=== PATIENT | male | born 1980 | race American Indian/Alaskan Native ===

== ENCOUNTER 2018-10-13 14:30 | Emergency (ER) | payer MEDICAID ==
[2018-10-13] MEDS ORDERED: Ibuprofen 600 MG Tab PO STA (14:44)
--- NOTE | 2018-10-13 14:47 | EDM.PDOC ---
ED HPI GENERAL MEDICAL PROBLEM - General Chief Complaint: Upper Extremity Injury/Pain Stated Complaint: DISLOCATION Time Seen by Provider: 10/13/18 14:30 Source of Information: Reports: Patient, Family History Limitations: Reports: No Limitations - History of Present Illness INITIAL COMMENTS - FREE TEXT/NARRATIVE: 37 y.o.w.m came to the ed after he felt pain at his right upper arm while wrestling. Pt has pain at his right humerus, radiating into his right shoulder and elbow. Pt rojo not remember the mech of injury. No N/V/D or any other acute medical issues. BP 157/90 RR 18 Pulse ox 100% on RA Pulse 73 Temp 36.7 Onset Date: 10/13/18 Onset Time: 13:00 Duration: Day(s):, Intermittent Location: Reports: Upper Extremity, Right Quality: Reports: Burning, Dull Severity: Moderate Improves with: Reports: Rest Worsens with: Reports: Movement Context: Reports: Trauma (through wrestling) Associated Symptoms: Reports: No Other Symptoms right elbow Pain Score (Numeric/FACES): 7 - Related Data Allergies Allergy/AdvReac Type Severity Reaction Status Date / Time No Known Allergies Allergy Verified 10/13/18 14:33 Home Meds: Home Meds NK [No Known Home Meds] 10/13/18 [History] Review of Systems - Review of Systems Review Of Systems: See Below Constitutional: Reports: No Symptoms Eyes: Reports: No Symptoms Ears: Reports: No Symptoms Nose: Reports: No Symptoms Mouth/Throat: Reports: No Symptoms Respiratory: Reports: No Symptoms Cardiovascular: Reports: No Symptoms GI/Abdominal: Reports: No Symptoms Genitourinary: Reports: No Symptoms Musculoskeletal: Reports: Arm Pain (right upper arm) Skin: Reports: No Symptoms Neurological: Reports: No Symptoms Psychiatric: Reports: No Symptoms ED EXAM, GENERAL - Physical Exam Exam: See Below Exam Limited By: No Limitations General Appearance: Alert, WD/WN, Moderate Distress Eye Exam: Bilateral Eye: Normal Inspection Ears: Normal External Exam Ear Exam: Bilateral Ear: Auricle Normal Nose: Normal Inspection, Normal Mucosa, No Blood Throat/Mouth: Normal Inspection, Normal Lips, Normal Voice, No Airway Compromise Head: Atraumatic, Normocephalic Neck: Normal Inspection, Supple, Non-Tender, Full Range of Motion Respiratory/Chest: No Respiratory Distress, Lungs Clear, Normal Breath Sounds, No Accessory Muscle Use, Chest Non-Tender Cardiovascular: Normal Peripheral Pulses, Regular Rate, Rhythm, No Edema, No Gallop, No JVD, No Murmur, No Rub Peripheral Pulses: 1+: Radial (R) GI/Abdominal: Normal Bowel Sounds, Soft, Non-Tender, No Organomegaly, No Distention, No Abnormal Bruit, No Mass, Pelvis Stable (Male) Exam: Deferred Rectal (Males) Exam: Deferred Back Exam: Normal Inspection, Full Range of Motion Extremities: Normal Inspection, Limited Range of Motion (right arem due to pain) Neurological: Alert, Oriented, CN II-XII Intact, Normal Cognition, Normal Gait, No Motor/Sensory Deficits Psychiatric: Normal Affect, Normal Mood Skin Exam: Warm, Dry, Intact, Normal Color Lymphatic: No Adenopathy Course - Vital Signs Text/Narrative:: 37 y.o.w.m came to the ed after he felt pain at his right upper arm while wrestling. Pt has pain at his right humerus, radiating into his right shoulder and elbow. Pt rojo not remember the mech of injury. No N/V/D or any other acute medical issues. BP 157/90 RR 18 Pulse ox 100% on RA Pulse 73 Temp 36.7 Pe: WNWD W M with right arm pain and Limited ROM due to pain Imaging: Right shoulder, humerus and elbow: NAD Impression: R upper arm pain after wrestling DDX: Compartment syndrome Tx: Ice, Motrin Reeam: Improved Plan: D/C with instructions Last Recorded V/S: Last Vital Signs Temp 36.6 C 10/13/18 15:10 Pulse 59 L 10/13/18 15:10 Resp 17 10/13/18 15:10 BP 149/94 H 10/13/18 15:10 Pulse Ox 100 10/13/18 15:10 - Orders/Labs/Meds Orders: Active Orders 24 hr Category Date Time Status Humerus Rt [CR] Stat Exams 10/13/18 14:42 Taken Meds: Medications Discontinued Medications Generic Name Dose Route Start Last Admin Trade Name Freq PRN Reason Stop Dose Admin Ibuprofen 600 mg 10/13/18 14:44 10/13/18 14:48 Motrin PO 10/13/18 14:45 600 mg ONETIME STA Administration Departure - Departure Time of Disposition: 15:03 Disposition: Home, Self-Care 01 Condition: Good Clinical Impression: Muscle pain - Discharge Information Instructions: Muscle Pain, Adult Referrals: PCP,None [Primary Care Provider] - Forms: ED Department Discharge Additional Instructions: Please f/u with your PMD, apply ICE to the affected area, please take Motrin for pain, please come back if your symptoms get worse acutely - My Orders Last 24 Hours: My Active Orders 10/13/18 14:42 Humerus Rt [CR] Stat - Assessment/Plan Last 24 Hours: My Active Orders 10/13/18 14:42 Humerus Rt [CR] Stat
--- NOTE | 2018-10-15 10:57 | CR ---
INDICATION: Arm wrestling injury. RIGHT HUMERUS: Three images of the right humerus in frontal and lateral projections were obtained, 10/13/18 - no comparisons. A fracture, dislocation, or other significant bone or joint abnormality was not identified. A tiny sclerotic density in the humeral head is compatible with a benign bone island. IMPRESSION: No acute fracture or dislocation. MTDD
== END 2018-10-13 15:13 | disposition home or self-care (01) ==
LOC: FB.ED 14:30
DX: M79.621 Pain in right upper arm (principal); M25.511 Pain in right shoulder; Y93.72 Activity, wrestling
CPT/HCPCS: 73060-RT; 99283-25; A9270-GY

== ENCOUNTER 2019-07-10 21:27 | Emergency (ER) | payer MEDICAID, OTHER ==
[2019-07-10] MEDS: Sodium Chloride 0.9% 10 ML Syringe FLUSH PRN ×2 (21:30→22:15)
[2019-07-10] MEDS ORDERED: LORazepam 2 MG/ML SDV IVPUSH ONE ×2 (21:32→21:47)
[2019-07-10] MEDS ORDERED: Morphine 2 MG/ML Syringe IVPUSH ONE (21:49)
--- NOTE | 2019-07-10 23:00 | EDM.PDOC ---
ED HPI GENERAL MEDICAL PROBLEM - General Chief Complaint: Headache Stated Complaint: HEAD PAIN; SOB Time Seen by Provider: 07/10/19 21:30 Source of Information: Reports: Patient History Limitations: Reports: No Limitations - History of Present Illness INITIAL COMMENTS - FREE TEXT/NARRATIVE: Patient presented to the ED because of sever headache,chest pain and anxiety attack. His head is throbing,10/10 denies any N/V. He had headaches before but nothing like this. He also c/o perioral numbness and tingling as well as dyspnea. Headache Pain Score (Numeric/FACES): 8 - Related Data Allergies Allergy/AdvReac Type Severity Reaction Status Date / Time No Known Allergies Allergy Verified 07/10/19 22:55 Home Meds: Home Meds amLODIPine Besylate [Norvasc] 10 mg PO DAILY #30 tablet 07/10/19 [Rx] Past Medical History - Past Health History Medical/Surgical History: Denies Medical/Surgical History Social & Family History - Family History Family Medical History: Noncontributory - Tobacco Use Smoking Status *Q: Current Every Day Smoker Years of Tobacco use: 12 Packs/Tins Daily: 0.5 Used Tobacco, but Quit: No Second Hand Smoke Exposure: No - Caffeine Use Caffeine Use: Reports: Coffee - Recreational Drug Use Recreational Drug Use: No ED ROS GENERAL - Review of Systems Review Of Systems: See Below Constitutional: Reports: No Symptoms HEENT: Reports: No Symptoms Respiratory: Reports: Shortness of Breath Cardiovascular: Reports: Chest Pain Endocrine: Reports: No Symptoms GI/Abdominal: Reports: No Symptoms : Reports: No Symptoms Musculoskeletal: Reports: No Symptoms Skin: Reports: No Symptoms Neurological: Reports: Headache Psychiatric: Reports: No Symptoms Hematologic/Lymphatic: Reports: No Symptoms Immunologic: Reports: No Symptoms - Physical Exam Exam: See Below Exam Limited By: No Limitations General Appearance: Alert, Anxious Eye Exam: Bilateral Eye: PERRL Ears: Normal External Exam, Normal Canal, Hearing Grossly Normal, Normal TMs Nose: Normal Inspection, Normal Mucosa, No Blood Throat/Mouth: Normal Inspection, Normal Lips, Normal Teeth, Normal Gums, Normal Oropharynx, Normal Voice Head Exam: Atraumatic, Normocephalic Neck: Normal Inspection, Supple, Non-Tender, Full Range of Motion Respiratory/Chest: No Respiratory Distress, Lungs Clear, Normal Breath Sounds, No Accessory Muscle Use, Chest Non-Tender Cardiovascular: Normal Peripheral Pulses, Regular Rate, Rhythm, No Edema, No Gallop, No JVD, No Murmur, No Rub GI/Abdominal: Normal Bowel Sounds, Soft, Non-Tender, No Organomegaly, No Distention, No Abnormal Bruit Neuro Exam (Abbreviated): Alert, Oriented, CN II-XII Intact, Normal Cognition, Normal Gait, Normal Reflexes, No Motor/Sensory Deficits Back Exam: Normal Inspection, Full Range of Motion Extremities: Normal Inspection, Normal Range of Motion, Non-Tender Psychiatric: Anxious, Tearful Skin Exam: Warm, Dry, Intact Course - Vital Signs Text/Narrative:: labs/EKG/Head CT was discussed with the patient and verbalized full understanding EKG-NSR trop-neg Head Ct -neg ativan 1 mg IV x1 morhine 4 mg IV x1 all his symptoms resolved after the above treatment Last Recorded V/S: Last Vital Signs Temp 36.5 C 07/10/19 21:27 Pulse 84 07/10/19 21:27 Resp 32 H 07/10/19 21:27 BP 195/105 H 07/10/19 21:27 Pulse Ox 100 07/10/19 21:27 - Orders/Labs/Meds Orders: Active Orders 24 hr Category Date Time Status EKG Documentation Completion [RC] ASDIRECTED Care 07/10/19 21:33 Active Chest 1V Frontal [CR] Stat Exams 07/10/19 21:33 Taken Head wo Cont [CT] Stat Exams 07/10/19 21:31 Taken Peripheral IV Insertion Adult [OM.PC] Routine Oth 07/10/19 22:52 Ordered EKG 12 Lead [EK] Routine Ther 07/10/19 21:33 Ordered Labs: Laboratory Tests 07/10/19 07/10/19 07/10/19 Range/Units 21:40 21:40 21:40 WBC 10.6 (4.5-12.0) X10-3/uL RBC 5.70 (4.30-5.75) x10(6)uL Hgb 16.6 (13.5-17.8) g/dL Hct 48.9 (30.0-51.3) % MCV 85.9 (80-96) fL MCH 29.1 (27.7-33.6) pg MCHC 33.9 (32.2-35.4) g/dL RDW 13.9 (11.5-15.5) % Plt Count 211 (125-369) X10(3)uL MPV 9.9 (7.4-10.4) fL Add Manual Diff Yes Neutrophils % (Manual) 77 (46-82) % Lymphocytes % (Manual) 10 L (13-37) % Monocytes % (Manual) 9 (4-12) % Eosinophils % (Manual) 4 (0-5) % Sodium 141 (135-145) mmol/L Potassium 3.6 (3.5-5.3) mmol/L Chloride 104 (100-110) mmol/L Carbon Dioxide 21 (21-32) mmol/L BUN 7 (7-18) mg/dL Creatinine 0.9 (0.70-1.30) mg/dL Est Cr Clr Drug Dosing TNP Estimated GFR (MDRD) > 60 (>60) BUN/Creatinine Ratio 7.8 L (9-20) Glucose 107 (80-116) mg/dL Calcium 9.2 (8.6-10.2) mg/dL Troponin I < 0.017 L (<0.017-0.056) ng/mL Meds: Medications Discontinued Medications Generic Name Dose Route Start Last Admin Trade Name Freq PRN Reason Stop Dose Admin Lorazepam 20 mg 07/10/19 21:32 07/10/19 21:49 Ativan IVPUSH 07/10/19 21:33 Not Given ONETIME ONE Lorazepam 1 mg 07/10/19 21:47 07/10/19 21:53 Ativan IVPUSH 07/10/19 21:48 1 mg ONETIME ONE Administration Morphine Sulfate 4 mg 07/10/19 21:49 07/10/19 21:54 Morphine IVPUSH 07/10/19 21:50 4 mg ONETIME ONE Administration Sodium Chloride 10 ml 07/10/19 22:52 07/10/19 22:15 Saline Flush FLUSH 10 ml ASDIRECTED PRN Administration Keep Vein Open Departure - Departure Time of Disposition: 10:55 Disposition: Home, Self-Care 01 Condition: Good Clinical Impression: Hypertensive crisis, Anxiety, Chest pain, atypical - Discharge Information Prescriptions: amLODIPine Besylate [Norvasc] 10 mg PO DAILY #30 tablet Instructions: Generalized Anxiety Disorder, Adult, Nonspecific Chest Pain, General Headache Without Cause, [id number] Referrals: PCP,None [Primary Care Provider] - Forms: ED Department Discharge Additional Instructions: low salt low fat diet exercise norvasc 10 mg once daily record your BP x7 days then follow up with your doctor in a week take ibuprofen 800 mg with tylenol 1000 mg every 8 hours as needed for pain Sepsis Event Note - Evaluation Sepsis Screening Result: No Definite Risk - Focused Exam Vital Signs: Vital Signs Temp Pulse Resp BP Pulse Ox 07/10/19 21:27 36.5 C 84 32 H 195/105 H 100 Date Exam was Performed: 07/11/19 Time Exam was Performed: 05:08 - My Orders Last 24 Hours: My Active Orders 07/10/19 21:31 Head wo Cont [CT] Stat 07/10/19 21:33 EKG Documentation Completion [RC] ASDIRECTED Chest 1V Frontal [CR] Stat EKG 12 Lead [EK] Routine 07/10/19 22:52 Peripheral IV Insertion Adult [OM.PC] Routine - Assessment/Plan Last 24 Hours: My Active Orders 07/10/19 21:31 Head wo Cont [CT] Stat 07/10/19 21:33 EKG Documentation Completion [RC] ASDIRECTED Chest 1V Frontal [CR] Stat EKG 12 Lead [EK] Routine 07/10/19 22:52 Peripheral IV Insertion Adult [OM.PC] Routine
--- NOTE | 2019-07-11 18:39 | CR ---
INDICATION: Cough, chest pain. CHEST, ONE VIEW: An AP upright view of the chest 07/10/19 was compared with 02/10 and again reveals the heart to be normal in size and shape. Mediastinum and bony thorax were unremarkable, except to note suggestion of a minimal dextroconcave scoliosis of the lower thoracic spine. A definite active infiltrate or effusion was not identified. Overlying EKG leads are noted. IMPRESSION: No acute process. MTDD
== END 2019-07-10 23:12 | disposition home or self-care (01) ==
LOC: FB.ED 21:27
DX: I16.9 Hypertensive crisis, unspecified (principal); R07.89 Other chest pain; F17.210 Nicotine dependence, cigarettes, uncomplicated
CPT/HCPCS: 36415; 70450; 71045; 80048; 84484; 85025; 93005; 96374; 96375; 99285; J2060; J2270

== ENCOUNTER 2021-05-15 01:04 | Emergency (ER) | payer SELFPAY ==
[2021-05-15] MEDS: Labetalol 20 MG/4 ML Syringe IVPUSH ONE (01:45)
--- NOTE | 2021-05-15 01:46 | EDM.PDOC ---
ED HPI GENERAL MEDICAL PROBLEM - General Stated Complaint: INTOXICATED Time Seen by Provider: 05/15/21 01:25 Source of Information: Reports: Patient - History of Present Illness INITIAL COMMENTS - FREE TEXT/NARRATIVE: 40-year-old gentleman called EMS and asked to be brought to the emergency department because he passed out. States that he has had a problem with alcoholism in the past but has been absent from alcohol for approximately 7 years leading up to the last several weeks. Over the last several weeks he has been drinking "a lot of alcohol." He states that his last drink of alcohol was earlier today. He called EMS because he states he never passed out in the past. He states that he has been smoking marijuana but has not consumed any other drugs. He has not had alcohol withdrawal in the past. Declined transfer to alcohol treatment/detoxification. He is simply concerned about his blood pressure at this time. He states that he was walking around the corner from the bathroom where he was staying he felt very dizzy suddenly and went to the floor and then blacked out. He is not aware of any trauma. He has no pain. Denies all other review of systems including fever, chills, flulike symptoms, chest pain, shortness of breath, change in bowel or bladder habits. - Related Data Allergies Allergy/AdvReac Type Severity Reaction Status Date / Time No Known Allergies Allergy Verified 05/15/21 03:15 Home Meds: Home Meds NK [No Known Home Meds] 05/15/21 [History] Past Medical History - Past Health History Medical/Surgical History: Denies Medical/Surgical History Social & Family History - Family History Family Medical History: No Pertinent Family History - Caffeine Use Caffeine Use: Reports: Coffee ED ROS GENERAL - Review of Systems Review Of Systems: See Below Constitutional: Reports: No Symptoms HEENT: Reports: No Symptoms Respiratory: Reports: No Symptoms Cardiovascular: Reports: Syncope Endocrine: Reports: No Symptoms GI/Abdominal: Reports: No Symptoms : Reports: No Symptoms Musculoskeletal: Reports: No Symptoms Skin: Reports: No Symptoms Neurological: Reports: No Symptoms Psychiatric: Reports: No Symptoms Hematologic/Lymphatic: Reports: No Symptoms Immunologic: Reports: No Symptoms ED EXAM, GENERAL - Physical Exam Exam: See Below Exam Limited By: No Limitations General Appearance: Alert, Anxious Eye Exam: Bilateral Eye: EOMI Head: Atraumatic, Normocephalic Respiratory/Chest: No Respiratory Distress, Lungs Clear Cardiovascular: Regular Rate, Rhythm, No Murmur Peripheral Pulses: 2+: Radial (L), Radial (R), Dorsalis Pedis (L), Dorsalis Pedis (R) GI/Abdominal: Normal Bowel Sounds, Soft, Non-Tender Back Exam: Normal Inspection Extremities: Normal Inspection Neurological: Alert, Oriented, Normal Cognition Psychiatric: Anxious Skin Exam: Warm, Dry Course - Vital Signs Text/Narrative:: Review of lab work shows hypernatremia and blood alcohol content 0.22. Patient was given 1 L banana bag, 10 mg labetalol IV, 0.1 mg clonidine. His blood pressure significantly improved and patient requested to be discharged to home. Last Recorded V/S: Last Vital Signs Temp 36.2 C 05/15/21 01:05 Pulse 78 05/15/21 01:05 Resp 16 05/15/21 01:05 BP 195/114 H 05/15/21 02:58 Pulse Ox 98 05/15/21 01:05 - Orders/Labs/Meds Orders: Active Orders 24 hr Category Date Time Status Notify Provider [RC] PRN Care 05/15/21 01:34 Active DRUG SCREEN, URINE [URCHEM] Stat Lab 05/15/21 01:30 Ordered MVI, Adult with Vitamin K [Infuvite Adult] 10 ml Med 05/15/21 01:45 Active Thiamine [Vitamin B-1] 100 mg Folic Acid 1 mg Magnesium Sulfate [Magnesium Sulfate 50%] 3 gm Sodium Chloride 0.9% [Normal Saline] 1,000 ml IV ASDIRECTED Medication Orders Multivitamins/Minerals 10 ml/Thiamine HCl 100 mg/ Folic Acid 1 mg/ Magnesium Sulfate 3 gm/ Sodium Chloride 1,017.2 mls @ 999 mls/hr IV ASDIRECTED ROSLYN Last Admin: 05/15/21 01:55 Dose: 999 mls/hr Documented by: YVETTE Labs: Laboratory Tests 05/15/21 05/15/21 05/15/21 Range/Units 01:41 01:41 01:41 WBC 9.2 (3.2-10.1) x10-3/uL RBC 5.52 (3.90-5.90) x10(6)uL Hgb 15.4 (12.9-17.7) g/dL Hct 47.1 (38.3-50.1) % MCV 85.3 (80.8-98.7) fL MCH 28.0 (27.0-33.3) pg MCHC 32.8 (28.7-35.3) g/dL RDW 15.6 H (12.4-15.0) % Plt Count 230 (117-477) x10(3)uL MPV 9.1 (6.7-11.0) fL Neut % (Auto) 73.6 H (40.3-71.8) % Lymph % (Auto) 19.0 (15.8-45.3) % [place] % (Auto) 5.4 L (5.5-15.2) % Eos % (Auto) 1.2 (0.1-6.8) % Baso % (Auto) 0.8 (0.3-3.8) % Neut # (Auto) 6.7 (1.7-6.9) x10-3/uL Lymph # (Auto) 1.7 (0.5-4.5) x10-3/uL [place] # (Auto) 0.5 (0.0-1.2) x10-3/uL Eos # (Auto) 0.1 (0.0-0.6) x10-3/uL Baso # (Auto) 0.1 (0.0-0.3) x10-3/uL Sodium 148 H (135-145) mmol/L Potassium 3.5 (3.5-5.3) mmol/L Chloride 110 D (100-110) mmol/L Carbon Dioxide 23 (21-32) mmol/L BUN 14 (7-18) mg/dL Creatinine 1.1 (0.70-1.30) mg/dL Est Cr Clr Drug Dosing TNP Estimated GFR (MDRD) > 60 (>60) BUN/Creatinine Ratio 12.7 (9-20) Glucose 160 H (80-116) mg/dL Calcium 8.0 L (8.6-10.2) mg/dL Magnesium 1.8 (1.8-2.5) mg/dL Total Bilirubin 0.5 (0.1-1.3) mg/dL AST 58 H (5-25) IU/L ALT 45 H (12-36) U/L Alkaline Phosphatase 107 (56-112) IU/L Total Protein 7.4 (6.0-8.0) g/dL Albumin 3.7 (3.5-5.2) g/dL Globulin 3.7 g/dL Albumin/Globulin Ratio 1.0 Ethyl Alcohol 0.22 H* (<0.03) % SARS-CoV-2 RNA (BYRON) (NEGATIVE) 05/15/21 Range/Units 02:05 WBC (3.2-10.1) x10-3/uL RBC (3.90-5.90) x10(6)uL Hgb (12.9-17.7) g/dL Hct (38.3-50.1) % MCV (80.8-98.7) fL MCH (27.0-33.3) pg MCHC (28.7-35.3) g/dL RDW (12.4-15.0) % Plt Count (117-477) x10(3)uL MPV (6.7-11.0) fL Neut % (Auto) (40.3-71.8) % Lymph % (Auto) (15.8-45.3) % [place] % (Auto) (5.5-15.2) % Eos % (Auto) (0.1-6.8) % Baso % (Auto) (0.3-3.8) % Neut # (Auto) (1.7-6.9) x10-3/uL Lymph # (Auto) (0.5-4.5) x10-3/uL [place] # (Auto) (0.0-1.2) x10-3/uL Eos # (Auto) (0.0-0.6) x10-3/uL Baso # (Auto) (0.0-0.3) x10-3/uL Sodium (135-145) mmol/L Potassium (3.5-5.3) mmol/L Chloride (100-110) mmol/L Carbon Dioxide (21-32) mmol/L BUN (7-18) mg/dL Creatinine (0.70-1.30) mg/dL Est Cr Clr Drug Dosing Estimated GFR (MDRD) (>60) BUN/Creatinine Ratio (9-20) Glucose (80-116) mg/dL Calcium (8.6-10.2) mg/dL Magnesium (1.8-2.5) mg/dL Total Bilirubin (0.1-1.3) mg/dL AST (5-25) IU/L ALT (12-36) U/L Alkaline Phosphatase (56-112) IU/L Total Protein (6.0-8.0) g/dL Albumin (3.5-5.2) g/dL Globulin g/dL Albumin/Globulin Ratio Ethyl Alcohol (<0.03) % SARS-CoV-2 RNA (BY[facility]) Negative (NEGATIVE) Meds: Medications Generic Name Dose Route Start Last Admin Trade Name Freq PRN Reason Stop Dose Admin Multivitamins/Minerals 10 ml/ 1,017.2 mls @ 999 mls/hr 05/15/21 01:45 05/15/21 01:55 Thiamine HCl 100 mg/ Folic IV 999 mls/hr Acid 1 mg/ Magnesium Sulfate 3 ASDIRECTED ROSLYN Administration gm/ Sodium Chloride Discontinued Medications Generic Name Dose Route Start Last Admin Trade Name Freq PRN Reason Stop Dose Admin Clonidine HCl 0.1 mg 05/15/21 02:53 05/15/21 02:58 Clonidine 0.1 Mg Tab PO 05/15/21 02:54 0.1 mg ONETIME ONE Administration Labetalol HCl 10 mg 05/15/21 01:29 05/15/21 01:45 Labetalol 20 Mg/4 Ml Syringe IVPUSH 05/15/21 01:30 10 mg ONETIME ONE Administration Protocol Departure - Departure Time of Disposition: 04:44 Disposition: Home, Self-Care 01 Condition: Poor Clinical Impression: Alcohol withdrawal syndrome, Alcohol abuse, Hypertension - Discharge Information *PRESCRIPTION DRUG MONITORING PROGRAM REVIEWED*: Not Applicable *COPY OF PRESCRIPTION DRUG MONITORING REPORT IN PATIENT CAYLA: Not Applicable Instructions: Preventing Hypertension, Syncope, [id number], Hypertension, Adult, [id number], Alcohol Use Disorder, Alcohol Intoxication, [id number], Supporting Someone With an Addiction, Hypertension, Adult Referrals: Tai Sánchez MD [Primary Care Provider] - Forms: ED Department Discharge Additional Instructions: You have been able to quit drinking alcohol in the past and I encourage you to do so again. Your labs indicated that your sodium level is a little high likely secondary to increased intake of alcohol. Please drink water. Your blood pressure was significantly high and is a danger to your future health. Please follow-up with your primary care physician. Sepsis Event Note (ED) - Focused Exam Vital Signs: Vital Signs Temp Pulse Resp BP Pulse Ox 05/15/21 02:58 195/114 H 05/15/21 01:05 36.2 C 78 16 98 - My Orders Last 24 Hours: My Active Orders 05/15/21 01:30 DRUG SCREEN, URINE [URCHEM] Stat 05/15/21 01:34 Notify Provider [RC] PRN 05/15/21 01:45 MVI, Adult with Vitamin K [Infuvite Adult] 10 ml Thiamine [Vitamin B-1] 100 mg Folic Acid 1 mg Magnesium Sulfate [Magnesium Sulfate 50%] 3 gm Sodium Chloride 0.9% [Normal Saline] 1,000 ml IV ASDIRECTED - Assessment/Plan Last 24 Hours: My Active Orders 05/15/21 01:30 DRUG SCREEN, URINE [URCHEM] Stat 05/15/21 01:34 Notify Provider [RC] PRN 05/15/21 01:45 MVI, Adult with Vitamin K [Infuvite Adult] 10 ml Thiamine [Vitamin B-1] 100 mg Folic Acid 1 mg Magnesium Sulfate [Magnesium Sulfate 50%] 3 gm Sodium Chloride 0.9% [Normal Saline] 1,000 ml IV ASDIRECTED
[2021-05-15] MEDS: MVI, Adult with Vitamin K 10 ML, Thiamine 100 MG, Folic Acid 1 MG, Magnesium Sulfate 3 ... IV SCH ×5 (01:55)
[2021-05-15] MEDS: cloNIDine 0.1 MG Tab PO ONE (02:58)
== END 2021-05-15 06:35 | disposition home or self-care (01) ==
LOC: FB.ED 01:04
DX: F10.230 Alcohol dependence with withdrawal, uncomplicated (principal); I10 Essential (primary) hypertension; Y90.8 Blood alcohol level of 240 mg/100 ml or more; Z20.822 Contact with and (suspected) exposure to COVID-19
CPT/HCPCS: 36415; 80053; 80307; 83735; 85025; 87635; 96365; 96375; 99284; A9270; J3411; J3475; J3490; J7030; U0002

== ENCOUNTER 2023-08-14 23:50 | Emergency (ER) | payer MEDICAID ==
[2023-08-14] MEDS ORDERED: Sodium Chloride 0.9% 10 ML Syringe FLUSH PRN (23:58)
[2023-08-15] MEDS ORDERED: Sodium Chloride 0.9% 1,000 ML IV SCH
[2023-08-15 00:15] LABS: BASOPHILS ABSOLUTE AUTO 0.1 x10-3/uL (0.0-0.3); BASOPHILS PERCENT AUTO 0.8 % (0.3-3.8); BLOOD UREA NITROGEN,BUN 13 mg/dL (7-18); CARBON DIOXIDE,CO2 22 mmol/L (21-32); CHLORIDE,CL 103 mmol/L (100-110); EOSINOPHILS ABSOLUTE AUTO 0.2 x10-3/uL (0.0-0.6); EOSINOPHILS PERCENT AUTO 3.3 % (0.1-6.8); ESTIMATED GFR 96 mL/min (>60); GLUCOSE RANDOM 197 mg/dL (80-116); HEMATOCRIT 46.7 % (38.3-50.1); HEMOGLOBIN 15.7 g/dL (12.9-17.7); LYMPHOCYTES ABSOLUTE AUTO 2.7 x10-3/uL (0.5-4.5); LYMPHOCYTES PERCENT AUTO 36.6 % (15.8-45.3); MEAN CORPUSCULAR HEMOGLOBIN 28.6 pg (27.0-33.3); MEAN CORPUSCULAR HGB CONC 33.6 g/dL (28.7-35.3); MEAN PLATELET VOLUME 9.2 fL (6.7-11.0); MONOCYTES ABSOLUTE AUTO 0.8 x10-3/uL (0.0-1.2); MONOCYTES PERCENT AUTO 10.2 % (5.5-15.2); NEUTROPHILS ABSOLUTE AUTO 3.6 x10-3/uL (1.7-6.9); NEUTROPHILS PERCENT AUTO 49.1 % (40.3-71.8); PLATELET COUNT,PLT 198 x10(3)uL (117-477); RED BLOOD CELL COUNT 5.49 x10(6)uL (3.90-5.90); RED CELL DISTRIBUTION WIDTH 15.2 % (12.4-15.0); SODIUM,NA 142 mmol/L (135-145); WHITE BLOOD CELL COUNT,WBC 7.4 x10-3/uL (3.2-10.1)
[2023-08-15 00:21] LABS: ALANINE AMINOTRANSFERASE,ALT 41 U/L (12-36); ALBUMIN 3.7 g/dL (3.5-5.2); ALKALINE PHOSPHATASE 138 IU/L (56-112); ASPARTATE AMNIOTRANSFERASE,AST 33 IU/L (5-25); BILIRUBIN TOTAL 0.4 mg/dL (0.1-1.3); PROTEIN TOTAL,TP 7.5 g/dL (6.0-8.0)
[2023-08-15 00:23] LABS: INR 0.98 (1.00-1.24); PROTHROMBIN TIME 10.2 sec (9.0-11.1); PTT,PARTIAL THROMBOPLSTIN TIME 25.5 SECONDS (24.4-33.2)
== END 2023-08-15 01:57 | disposition home or self-care (01) ==
LOC: FB.ED 23:50
DX: T74.11XA Adult physical abuse, confirmed, initial encounter (principal); S41.132A Puncture wound without foreign body of left upper arm, initial encounter; E87.6 Hypokalemia; F10.129 Alcohol abuse with intoxication, unspecified; I10 Essential (primary) hypertension; Z79.899 Other long term (current) drug therapy; Y04.2XXA Assault by strike against or bumped into by another person, initial encounter
CPT/HCPCS: 36410; 71045; 80053; 80307; 85025; 85610; 85730; 93005; 93010; 99283; 99285